=== PATIENT | male | born 1990 | race Caucasian/White ===

== ENCOUNTER 2023-07-05 17:17 | Emergency (ER) | payer SELFPAY ==
[2023-07-05 17:19] VITALS: BP 151/91; PULSE 74; RESP 18; TEMP 36.6; O2SAT 99; BMI 33.9
--- NOTE | 2023-07-05 17:37 | ED.BACK1 ---
HPI - Back Pain/Injury General Chief Complaint: Back Pain/Injury Stated Complaint: BACK PAIN Time Seen by Provider: 07/05/23 17:27 Source: patient Mode of arrival: walk-in Limitations: no limitations History of Present Illness HPI Narrative: patient is a 32-year-old male who presents to the emergency department for recurrent sciatica. He states he has been having issues for the last several weeks coming and going with pain in the left buttock radiating down the back of the left leg. He states if he is standing for long periods of time he will have some tingling to the left leg. He denies any mechanism of injury or trauma. He has been previously diagnosed with sciatica. He denies any significant midline spinal pain. No medications taken prior to arrival. He is able to ambulate. he denies any urinary changes or incontinence. Related Data Home Medications Medication Instructions Recorded Confirmed No Known Home Medications 07/05/23 07/05/23 Previous Rx's Medication Instructions Recorded ketorolac 10 mg tablet 10 mg PO TID PRN pain #10 tabs 07/05/23 methocarbamol 750 mg tablet 750 mg PO TID PRN pain #20 tabs 07/05/23 methylprednisolone 4 mg tablets in See Rx Instructions .Route 07/05/23 a dose pack (Medrol (Boyd)) .COMPLEX #21 ea Allergies Allergy/AdvReac Type Severity Reaction Status Date / Time No Known Drug Allergies Allergy Verified 07/05/23 17:21 Review of Systems ROS Constitutional Denies: fever or chills Ears, nose, mouth, and throat Denies: throat pain or neck pain Respiratory Denies: shortness of breath Gastrointestinal Denies: nausea or vomiting Musculoskeletal Reports: back pain; Denies: neck pain Integumentary/Breast Denies: rash Neurological Denies: headache or numbness in extremities Endocrine Denies: excessive urination Exam Narrative Exam Narrative: Gen.: Awake, alert, in no distress Head: Normocephalic, atraumatic ENT: Moist mucous membranes Respiratory: No respiratory distress Back: no bony tenderness of the T-spine or L-spine with diffuse mild tenderness of the left low back and left buttock Extremities: Moves extremities equally, normal dorsiflexion and plantarflexion of the lower extremities, no decrease in sensation to the medial thighs, normal hip flexion bilaterally Psych: Normal mood and affect Neuro: No focal neuro deficit Skin: Warm, dry, intact Constitutional Vital Signs, click to edit/add: Last Vital Signs Temp 98 F 07/05/23 17:19 Pulse 74 07/05/23 17:19 Resp 18 07/05/23 17:19 BP 151/91 H 07/05/23 17:19 Pulse Ox 99 07/05/23 17:19 O2 Del Method Room Air 07/05/23 17:19 Course Vital Signs Vital signs: Vital Signs Temperature 98 F 07/05/23 17:19 Pulse Rate 74 07/05/23 17:19 Respiratory Rate 18 07/05/23 17:19 Blood Pressure 151/91 H 07/05/23 17:19 Pulse Oximetry 99 07/05/23 17:19 Oxygen Delivery Method Room Air 07/05/23 17:19 Temperature 98 F 07/05/23 17:19 Pulse Rate 74 07/05/23 17:19 Respiratory Rate 18 07/05/23 17:19 Blood Pressure 151/91 H 07/05/23 17:19 Pulse Oximetry 99 07/05/23 17:19 Oxygen Delivery Method Room Air 07/05/23 17:19 MDM - Back Pain/Injury MDM Narrative Medical decision making narrative: symptoms and exam are consistent with left-sided sciatica with no focal neuro deficits in the Emergency Room. Patient is referred to primary care provider for further evaluation and treatment. He'll be treated for symptoms in the Emergency Room and discharged home with prescriptions. Rest, ice, gentle stretching. Return to the Emergency Room if symptoms change or worsen. Medical Records Attestation: I reviewed the patient's medical records. Discharge Plan Discharge Chief Complaint: Back Pain/Injury Clinical Impression: Left sided sciatica Patient Disposition: Home, Self-Care Time of Disposition Decision: 17:38 Condition: Good Prescriptions / Home Meds: New ketorolac 10 mg tablet 10 mg PO TID PRN (Reason: pain) Qty: 10 0RF methocarbamol 750 mg tablet 750 mg PO TID PRN (Reason: pain) Qty: 20 0RF methylprednisolone [Medrol (Boyd)] 4 mg tablets,dose pack See Rx Instructions .ROUTE .COMPLEX Qty: 21 0RF Rx Instructions: Taper as directed No Action No Known Home Medications Instructions: Sciatica (ED), Lower Back Exercises (ED) Stand Alone Forms: Portal Instructions Referrals: Physician,Non-Staff, MD [Primary Care Provider] - 1 week
[2023-07-05] MEDS: KETOROLAC TROMETHAMINE 60 MG/2 ML VIAL IM (18:03)
[2023-07-05] MEDS: ORPHENADRINE 60 MG/ 2 ML VIAL IM (18:03)
== END 2023-07-05 18:10 | disposition home or self-care (01) ==
PROVIDERS: Emergency Provider Emergency Medicine Emergency Medical Services
DX: M54.32 Sciatica, left side (principal)
CPT/HCPCS: 96372; 99284